=== PATIENT | female | born 1950 | race Caucasian/White ===

== ENCOUNTER → 2018-04-03 08:21 | Outpatient (CLI) | payer OTHER, SELFPAY ==
[2018-04-06 10:14] LABS: Lipoprofile NMR SEE SEPARATE REPORTS
== END ==
PROVIDERS: Visit Provider Family Medicine
DX: E78.5 Hyperlipidemia, unspecified (principal)
CPT/HCPCS: 36415; 83704

== ENCOUNTER → 2019-06-25 12:09 | Outpatient (CLI) | payer MEDICARE, SELFPAY ==
--- NOTE | 2019-06-25 | DI.MG.S_ITS ---
BILATERAL DIGITAL SCREENING MAMMOGRAM 3D/2D WITH CAD: 06/25/2019 CLINICAL: Routine screening. Comparison is made to exams dated: 07/13/2017 mammogram, 07/10/2013 mammogram, 07/07/2015 mammogram, 06/15/2011 mammogram, and 11/04/2009 mammogram - [facility]. The tissue of both breasts is heterogeneously dense. This may lower the sensitivity of mammography. Current study was also evaluated with a Computer Aided Detection (CAD) system. There is a biopsy clip in the left breast. There is a mole marker on the left breast. No significant masses, calcifications, or other findings are seen in either breast. There has been no significant interval change. IMPRESSION: NEGATIVE There is no mammographic evidence of malignancy. A 1 year screening mammogram is recommended. This exam was interpreted at Station ID: [id number]. NOTE: For mammograms, a report in lay terms will be sent to the patient. Approximately 15% of breast malignancies will not be visualized mammographically. In the management of a palpable breast mass, a negative mammogram must not discourage biopsy of a clinically suspicious lesion. Electronically Signed By: Miguel fortune/carlos a:06/25/2019 18:09:37 letter sent: Normal Exam ACR BI-RADS Category 1: Negative 3341F
== END ==
PROVIDERS: PCP Family Medicine; Visit Provider Family Medicine
DX: Z12.31 Encounter for screening mammogram for malignant neoplasm of breast (principal)
CPT/HCPCS: 77063; 77067

== ENCOUNTER → 2019-07-23 09:45 | Outpatient (CLI) | payer MEDICARE, SELFPAY | PROVIDERS: PCP Family Medicine; Referring Provider Family Medicine; Visit Provider Family Medicine | DX: M81.0 Age-related osteoporosis without current pathological fracture (principal); Z78.0 Asymptomatic menopausal state | CPT/HCPCS: 77080 ==

== ENCOUNTER → 2019-08-06 08:27 | Outpatient (CLI) | payer MEDICARE, SELFPAY ==
[2019-08-06 09:36] LABS: Add Manual Diff / Slide Review NO; Basophils Absolute Auto 100 /uL (0-100); Basophils Percent Auto 2.3 % (0-2); Eosinophils Absolute Auto 100 /uL (0-450); Eosinophils Percent Auto 2.7 % (2-4); Hematocrit 43.8 % (36-46); Hemoglobin 14.5 g/dL (12.0-16.0); Lymphocytes Absolute Auto 1800 /uL (1100-4500); Lymphocytes Percent Auto 39.1 % (25-40); Mean Corpuscular HGB Conc 33.1 % (30-36); Mean Corpuscular Hemoglobin 29.6 PG (26-34); Mean Corpuscular Volume 89.4 fL (80-100); Monocytes Absolute Auto 500 /uL (0-900); Monocytes Percent Auto 9.7 % (3-14); Neutrophils Absolute Auto 2200 /uL (1500-7000); Neutrophils Percent Auto 46.2 % (50-75); Platelet Count 280 X10^3/uL (150-400); Red Cell Distribution Width 13.2 % (11.6-14.8); White Blood Cell Count 4.7 X10^3/uL (4.5-11.0)
[2019-08-06 09:56] LABS: Alanine Aminotransferase 15 IU/L (<35); Albumin 4.3 g/dL (3.5-5.0); Albumin Globulin Ratio 1.5 (1.0-2.8); Alkaline Phosphatase 101 U/L (38-126); Aspartate Aminotransferase 26 IU/L (14-36); BUN Creatinine Ratio 31.4 (6-22); Bilirubin Total 0.5 mg/dL (0.2-1.3); Blood Urea Nitrogen 22 mg/dL (7-17); Calcium 9.6 mg/dL (8.4-10.2); Carbon Dioxide 30 mmol/L (22-32); Chloride 103 mmol/L (98-107); Cholesterol 235 mg/dL (140-199); Estimated Glomerular Filt Rate > 60.0 mL/min (>60); Globulin 2.9 g/dL (1.7-4.1); Glucose 99 mg/dL (80-110); HDL Cholesterol 67 mg/dL (40-60); HEMOLYSIS < 15 (0-50); LDL Cholesterol Calculated 153 mg/dL (<100); Potassium 4.6 mmol/L (3.4-5.1); Sodium 141 mmol/L (137-145); Total Protein 7.2 g/dL (6.3-8.2); Triglycerides 77 mg/dL (35-150)
[2019-08-06 09:59] LABS: High Sensitivity CRP - Cardiac 0.6 mg/L (1.0-3.0)
[2019-08-06 10:27] LABS: TSH w/ Reflex to FT4 2.83 uIU/mL (0.47-4.68)
[2019-08-06 10:56] LABS: Hep C Virus Ab w/Reflex Quant NEGATIVE s/c (NEGATIVE)
== END ==
PROVIDERS: PCP Family Medicine; Referring Provider Family Medicine; Visit Provider Family Medicine
DX: Z11.59 Encounter for screening for other viral diseases (principal); E78.5 Hyperlipidemia, unspecified
CPT/HCPCS: 36415; 80053; 80061; 84443; 85025; 86140; 86803

== ENCOUNTER → 2019-10-31 10:10 | Outpatient (CLI) | payer MEDICARE, SELFPAY ==
--- NOTE | 2019-10-31 10:11 | DI.CT.S_ITS ---
PROCEDURE: CT KIDNEY URETER BLADDER (KUB) INDICATIONS: hematura and kidney pain TECHNIQUE: Noncontrast 5 mm thick sections acquired from the diaphragms to the symphysis. 5 mm thick coronal and sagittal reformats were then performed. For radiation dose reduction, the following was used: automated exposure control, adjustment of mA and/or kV according to patient size. COMPARISON: None. FINDINGS: Image quality: Excellent. Lung bases: Lung bases are clear. Heart size is normal. Urinary system: Both kidneys are normal in size. There are bilateral small kidney stones within the calyces of both kidneys, none of which appear obstructed. There is, however, right-sided hydronephrosis and slight perinephric fat stranding. The left ureter appears non-dilated throughout its expected course, but the right ureter is mildly dilated to the bladder level where an impacted 3 x 5 mm calculus can be seen within the submucosal tunnel portion of the distal ureter. Bladder wall thickness is normal; no calcified bladder stones. An additional unexpected finding is a potential malignant mass mildly exophytic from the lower third cortex of the left kidney, rounded, measuring up to 2.1 cm in diameter, and having an internal radiodensity that is heterogeneous and above the upper limits of measurements of the renal cortex elsewhere. Other solid organs: Liver is normal in size. Gallbladder appears normal. Pancreas is normal in contours. Spleen is normal in size. No adrenal nodules. Peritoneum and bowel: Unenhanced bowel loops demonstrate normal wall thickness and caliber. No free fluid or air. Nodes and vessels: No retroperitoneal or mesenteric adenopathy by size criteria. Aorta and inferior vena cava are normal in caliber. Abdominal wall: No ventral hernias. Pelvis: No free pelvic fluid. No inguinal hernias or adenopathy. Bones: No suspicious bony lesions. No vertebral body compression fractures. IMPRESSION: 1. There is an unexpected finding of a potential malignant 2.1 cm mass exophytic from the lower third renal cortex of the left kidney. Contrast enhanced followup renal malignancy protocol CT is recommended. 2. Impacted far distal right ureteral stone at the bladder wall level, measuring 3 x 5 mm. A stone of this size may not pass without urologic intervention. This is associated with mild to moderate right-sided hydronephrosis and hydroureter. 3. In addition to the calculus noted above there is the finding of bilateral nonobstructive small calculi involving the kidneys bilaterally. Dictated by: Willian Patton M.D. on 10/31/2019 at 10:27 Approved by: Willian Patton M.D. on 10/31/2019 at 11:01
== END ==
PROVIDERS: PCP Family Medicine; Referring Provider Family Medicine; Visit Provider Family Medicine
DX: R31.9 Hematuria, unspecified (principal); N13.2 Hydronephrosis with renal and ureteral calculous obstruction; R16.0 Hepatomegaly, not elsewhere classified; N23 Unspecified renal colic
CPT/HCPCS: 74176

== ENCOUNTER → 2019-12-22 09:03 | Outpatient (CLI) | payer MEDICARE, SELFPAY ==
[2019-12-23 18:35] LABS: COVID19 Sendout Not Detected (Not Detect)
== END ==
PROVIDERS: PCP Family Medicine; Visit Provider Physician Assistant
DX: Z01.812 Encounter for preprocedural laboratory examination (principal)
CPT/HCPCS: 87635

== ENCOUNTER 2019-12-25 08:27 | Day surgery (SDC) | payer MEDICARE, SELFPAY ==
[2019-12-25] VITALS (11 sets, daily range): BP systolic 96–139; BP diastolic 57–89; PULSE 61–93; RESP 10–16; TEMP 36.1–37.1; O2SAT 96–100; BMI 21.4
--- NOTE | 2019-12-25 | PATH_ITS ---
[facility] Accession Number: [id number] . 01 Material submitted: . colon - COLON POLYPS AT 40 CM X3 . 02 Diagnosis: Colon Polyps at 40 cm x3: Portion of tubular adenoma x1. Portion of serrated lesion x 1, favor sessile serrated adenoma. Portion of serrated lesion x 1, favor hyperplastic polyp. MRV 12/28/2019 1200 Local . 02 Electronically signed: . Lesley Farley MD, Pathologist NPI- [id number] . 01 Gross description: . COLON POLYPS AT 40 CM X3: Received in formalin are 3 fragment(s) of gamboa, soft tissue measuring 0.2 x 0.2 x 0.1 cm to 0.3 x 0.1 x 0.1 cm submitted entirely in 1 cassette(s) /NAKITA 12/26/2019 2113 Local . 02 Pathologist provided ICD-10: K63.5, Z12.11 . 02 CPT . 749025 Performed at: 01 [facility] [address], [place], [place] [id number] MD Joaquin Santiago MD Phone: [phone] Performed at: 02 [facility] [address] [place], [place] [id number] MD Maki Cruz MD Phone: [phone]
[2019-12-25] MEDS: FLEETS ENEMA 1 EACH PR (09:19)
[2019-12-25] MEDS: LACTATED RINGERS 1,000 ML 200 ML IV (09:19)
--- NOTE | 2019-12-25 09:32 | SUR.PREOP ---
Stool was cloudy yellow, green. Talked with Dr. Matute, enema given as ordered. No results yet.
--- NOTE | 2019-12-25 09:58 | PM.HP.1 ---
History of Present Illness History of Present Illness Date Patient Seen: 12/25/19 Time Patient Seen: 09:58 Chief complaint: [id number] Narrative: Patient is a woman here for screening colonoscopy. Her last exam was 12 or so years ago. No family history of colon cancer. No personal history of polyps. Patient History Medical History Abnormal Pap smear of cervix (Chronic) Chicken pox (Resolved) Dyspareunia (Chronic) Fibroids (Chronic) Hair cast (Chronic) Hemorrhoid (Resolved) Hepatitis A (Resolved ~2003) High cholesterol (Chronic) Irregular menstrual cycle (Chronic) Measles (Resolved) Mumps (Resolved) Osteopenia (Acute) Postnasal drip (Chronic) Sensitive skin (Chronic) Surgical History Anesthesia (Resolved) Ovarian cyst (Chronic ~1990) Status post colonoscopy (~2007) Family & Social History Family History Father Age: 99 Alzheimer's dementia Arthritis Incontinence Mother Age: 102 Macular degeneration Hearing loss Incontinence Dementia Grandmother Hypertension Social History: household members significant other Tobacco & Substance use: Smoking Status Never smoker alcohol intake current alcohol intake frequency a few times a month Substance Use Type does not use Meds Home Medications and Allergies Home Medications Medication Instructions Recorded Confirmed Type CHOLECALCIFEROL (D-AL DROPS) 400 units PO QDAY #0 08/15/12 12/25/19 History COENZYME Q10/VITAMIN E (CO-Q-10 200 mg PO QDAY #0 08/15/12 12/25/19 History 200mg) Lutein (#LUTEIN) 20 mg PO QDAY #0 08/15/12 11/01/19 History estriol 0.2% VAGINAL WEEKLY 12/25/19 History melatonin 1 mg PO BEDTIME PRN 12/25/19 12/25/19 History Allergies Allergy/AdvReac Type Severity Reaction Status Date / Time ciprofloxacin [CIPROFLOXACIN] Allergy Mild Rash, Verified 12/25/19 09:09 itching Review of Systems Review of Systems ROS: Yes All systems reviewed with the patient and are negative except as otherwise documented Genitourinary Comments: Recent kidney stones and kidney cysts were found Exam Vital Signs (past 8 hours): - 12/25/19 09:00 12/25/19 09:09 Temperature 98.1 F 98.1 F Pulse Rate 90 90 Respiratory Rate 14 16 Blood Pressure 139/89 139/89 Pulse Oximetry 98 98 Oxygen Delivery Method Room Air Narrative Exam Narrative: Cooperative no apparent distress lungs are clear to auscultation without rales or rhonchi. Heart regular rate and rhythm without murmur gallop. Abdomen is scaphoid soft nontender without mass. Patient is alert and oriented. Assessment & Plan Assessment & Plan narrative: I have discussed the procedure and the rationale with the patient including risks of bleeding, perforation which would necessitate a major operation, failure to find remove all lesions and the potential to tattoo. They appeared to understand and wished to proceed.
--- NOTE | 2019-12-25 09:59 | PM.PREOP ---
Pre-operative Note COVID-19 COVID-19 status: Negative Result date/Date tested (Pos, Neg/Pending): 12/22/19 Interval Note History & Physical reviewed/Exam performed by Physician: Yes Changes to H&P: No ASA Class (for procedural sedation): I
[2019-12-25] MEDS: MIDAZOLAM 5 MG/5 ML VIAL IV (10:23)
[2019-12-25] MEDS: fentaNYL 250 MCG/5 ML INJ IV (10:23)
--- NOTE | 2019-12-25 10:45 | PM.OP.ENDO ---
Operative Date/Time/Diagnoses Date of procedure: 12/25/19 Time of procedure: 10:45 Pre-op diagnosis: Screening examination for colon cancer Post-op diagnosis: same (Three tiny polyp snare 40 cm from the anal verge. Sigmoid diverticulosis.) Procedure & Clinicians Study performed: Colonoscopy with cold biopsies Same procedure as scheduled: Yes Indications: Screening. Last exam was over 10 years ago Surgeon: Rigoberto Matute Procedure Notes SCOAP/Timeout: Performed Procedure in detail: The patient was placed in the left lateral decubitus position and underwent IV sedation directed by the surgeon consisting of fentanyl and Versed. Digital exam was unremarkable. The scope was inserted and advanced through the rectum into the sigmoid. At about 40 cm I encountered 2 very small polyps which I biopsied and removed. I noted diverticulosis as well. I continued on into the Descending, transverse, and ascending colon. These were normal in appearance.. The cecum was reached identified by the ileocecal valve and the appendiceal opening. The ileocecal valve was successfully cannulated. The terminal ileum was normal in appearance. There was a small area of the cecum near the appendix that I did not see well due to large number of seeds which I could not suction. The scope was gradually brought out. One other Polyp was found at near the location of the 1st 2. It was also tiny and removed and placed in the same container.. The scope ultimately was retroflexed in the rectum. The appearance was normal. The scope was removed and the patient tolerated the procedure well. Adequate Scope withdrawal time: 6 minutes Sedation minutes: 28 Findings: diverticulosis and polyp (Three very small lesions. May not be neoplastic.) Specimen(s): other (Three small polyps near 40 cm) Complications: none Post-procedure Recommendations: Colonscopy in 5 years (If the polyps removed are not adenomatous, then 10 years would be more appropriate.) Follow up: as needed Disposition: PACU
--- NOTE | 2019-12-25 11:41 | SUR.PHASEII ---
Patient sat on the edge of the bed, c/o feeling lightheaded and was laid back down. Fluids and crackers provided and encouraged. Call light within reach.
--- NOTE | 2019-12-25 12:09 | SUR.PHASEII ---
Attempted to get dressed, VS taken, pt then wanted to lay down again.
--- NOTE | 2019-12-25 12:38 | SUR.PHASEII ---
1220: Pt now ready to get going, VSS, left when ready and left in stable condition.
== END 2019-12-25 12:30 | disposition home or self-care (01) ==
PROVIDERS: PCP Family Medicine; Referring Provider Specialist; Visit Provider Specialist
PROC: 0DJD8ZZ Inspection of Lower Intestinal Tract, Via Natural or Artificial Opening Endoscopic (ICD-10-PCS; CPT 45378; principal; 2019-12-25 09:45)
DX: Z12.11 Encounter for screening for malignant neoplasm of colon (principal); K57.30 Diverticulosis of large intestine without perforation or abscess without bleeding; K63.5 Polyp of colon
CPT/HCPCS: 45380; 99152; 99153; J2250; J3010

== ENCOUNTER → 2020-01-01 07:32 | Outpatient (CLI) | payer MEDICARE, SELFPAY ==
[2020-01-01 09:26] LABS: Uric Acid 3.6 mg/dL (2.5-6.2)
[2020-01-01 09:55] LABS: Collection Time Urine 7 Hours; Creatinine 24 Hour Urine 806 mg/day (800-1800); Sodium 24 Hour Urine 53 mmol/day (40-220); Sodium Urine Random 17 mmol/L (30-90); Total Volume Urine 3100 mL
[2020-01-01 10:42] LABS: Calcium 24 Hour Urine 180 mg/day (100-300); Calcium Urine Random 5.8 mg/dL; Collection Time Urine 7 Hours; Phosphorous 24 Hour Urine 561 mg/day (400-1300); Phosphorous Urine Random 18.1 mg/dL
[2020-01-01 13:20] LABS: Total Volume Urine 3100 mL
[2020-01-02 12:09] LABS: Calcium 9.3 mg/dL (8.7-10.3); Parathyroid Hormone, Intact 38 pg/mL (15-65)
[2020-01-03 14:36] LABS: Urine Oxalates 5 mg/L (Undefined); Urine Oxalates 24 hour 16 mg/24 hr (4-31)
== END ==
PROVIDERS: PCP Family Medicine; Referring Provider Family Medicine; Visit Provider Family Medicine
DX: N20.2 Calculus of kidney with calculus of ureter (principal)
CPT/HCPCS: 36415; 82310; 82340; 82507; 82570; 83945; 83970; 84105; 84300; 84550; 84560

== ENCOUNTER → 2020-07-10 10:19 | Outpatient (CLI) | payer MEDICARE, SELFPAY ==
[2020-07-10] MEDS: COVID-19 VACC #1, MRNA(MOD) 100 MCG/0.5 ML VIAL IM (12:28)
== END ==
PROVIDERS: PCP Family Medicine; Visit Provider Internal Medicine
DX: Z23 Encounter for immunization (principal)
CPT/HCPCS: 0011A; 91301

== ENCOUNTER → 2020-08-07 09:15 | Outpatient (CLI) | payer MEDICARE, SELFPAY ==
[2020-08-07] MEDS: COVID-19 VACC #2, MRNA(MOD) 100 MCG/0.5 ML VIAL IM (09:21)
== END ==
PROVIDERS: PCP Family Medicine; Visit Provider Internal Medicine
DX: Z23 Encounter for immunization (principal)
CPT/HCPCS: 0012A; 91301

== ENCOUNTER → 2020-12-11 08:42 | Outpatient (CLI) | payer OTHER, SELFPAY ==
[2020-12-11 09:27] LABS: Add Manual Diff / Slide Review NO; Basophils Absolute Auto 100 /uL (0-100); Basophils Percent Auto 2.2 % (0-2); Eosinophils Absolute Auto 100 /uL (0-450); Eosinophils Percent Auto 2.9 % (2-4); Hematocrit 41.1 % (36-46); Hemoglobin 13.5 g/dL (12.0-16.0); Lymphocytes Absolute Auto 1900 /uL (1100-4500); Lymphocytes Percent Auto 37.5 % (25-40); Mean Corpuscular HGB Conc 32.9 % (30-36); Mean Corpuscular Hemoglobin 29.1 PG (26-34); Mean Corpuscular Volume 88.6 fL (80-100); Monocytes Absolute Auto 400 /uL (0-900); Monocytes Percent Auto 8.4 % (3-14); Neutrophils Absolute Auto 2500 /uL (1500-7000); Platelet Count 288 X10^3/uL (150-400); Red Blood Cell Count 4.64 X10^6/uL (4.0-5.2); Red Cell Distribution Width 13.3 % (11.6-14.8)
[2020-12-11 09:41] LABS: Alanine Aminotransferase 15 IU/L (<35); Albumin Globulin Ratio 1.4 (1.0-2.8); Alkaline Phosphatase 79 U/L (38-126); Aspartate Aminotransferase 26 IU/L (14-36); BUN Creatinine Ratio 23.4 (6-22); Bilirubin Total 0.5 mg/dL (0.2-1.3); Blood Urea Nitrogen 15 mg/dL (7-17); Calcium 8.9 mg/dL (8.4-10.2); Carbon Dioxide 27 mmol/L (22-32); Chloride 107 mmol/L (98-107); Cholesterol 237 mg/dL (140-199); Estimated Glomerular Filt Rate > 60.0 mL/min (>60); Globulin 2.8 g/dL (1.7-4.1); Glucose 98 mg/dL (80-110); HDL Cholesterol 70 mg/dL (40-60); HEMOLYSIS < 15 (0-50); LDL Cholesterol Calculated 151 mg/dL (<100); Potassium 3.9 mmol/L (3.4-5.1); Sodium 138 mmol/L (137-145); Total Protein 6.8 g/dL (6.3-8.2); Triglycerides 82 mg/dL (35-150)
== END ==
PROVIDERS: PCP Family Medicine; Referring Provider Family Medicine; Visit Provider Family Medicine
DX: E78.2 Mixed hyperlipidemia (principal)
CPT/HCPCS: 36415; 80053; 80061; 85025

== ENCOUNTER → 2020-12-17 10:10 | Outpatient (CLI) | payer OTHER, SELFPAY ==
--- NOTE | 2020-12-17 10:12 | DI.US.S_ITS ---
PROCEDURE: US RENAL COMPLETE INDICATIONS: LEFT KIDNEY MASS TECHNIQUE: Real-time scanning was performed of the kidneys and bladder, with image documentation. COMPARISON: [facility], CT, CT KIDNEY URETER BLADDER (KUB), 10/31/2019, 10:07. FINDINGS: Kidneys: Kidneys are normal in size. Right kidney measures 10.3 cm long; left kidney measures 11.4 cm long. Right renal cortical thickness is 1.5 cm; left renal cortical thickness is 1.3 cm. Renal cortical echotexture is normal. A hyperechoic solid mass is seen at the inferior pole of the left kidney measuring approximately 2.6 x 1.6 x 2.1 cm, which corresponds to the abnormality on CT from 10/31/2019. A simple appearing cyst is seen in the superior pole of the right kidney measuring up to 2.8 cm in maximum dimension. A 6 mm echogenic focus at the inferior pole of the right kidney is compatible with a nonobstructing calculus. Scattered tiny echogenic foci in both kidneys likely represent tiny nonobstructing calculi as seen on the prior CT. There is no hydronephrosis. Bladder: Pre-void bladder volume is 350 mL. Post-void residual is 0 mL. Pre-void images demonstrate no intraluminal masses or stones. On pre-void images, bilateral ureteral jets are noted with color Doppler interrogation. (Of note, ureteral jets may not be detectable in up to 25% of cases due to insufficient differences in specific gravity between ureteral and bladder urine). Miscellaneous: No free pelvic fluid. IMPRESSION: 1. Solid echogenic mass in the inferior pole of the left kidney measures 2.6 x 1.6 x 2.1 cm, mildly increased in size when compared to the CT from 10/31/2019. 2. Nonobstructing 6 mm calculus in the inferior pole of the right kidney. Additional bilateral tiny echogenic foci likely represent non-obstructing calculi as seen on the prior CT. No hydronephrosis. Dictated by: Raffaele Cha M.D. on 12/17/2020 at 13:48 Approved by: Raffaele Cha M.D. on 12/17/2020 at 13:54
== END ==
PROVIDERS: PCP Family Medicine; Referring Provider Family Medicine; Visit Provider Family Medicine
DX: N28.89 Other specified disorders of kidney and ureter (principal); N20.0 Calculus of kidney
CPT/HCPCS: 76770

== ENCOUNTER → 2021-03-31 09:17 | Outpatient (CLI) | payer OTHER, SELFPAY ==
--- NOTE | 2021-03-31 | DI.MG.S_ITS ---
BILATERAL DIGITAL SCREENING MAMMOGRAM 3D/2D WITH CAD: 03/31/2021 CLINICAL: Routine screening. Family history of breast cancer. Comparison is made to exams dated: 06/25/2019 mammogram, 07/13/2017 mammogram, and 07/07/2015 mammogram - [facility]. The tissue of both breasts is heterogeneously dense. This may lower the sensitivity of mammography. Current study was also evaluated with a Computer Aided Detection (CAD) system. There is a biopsy clip in the left breast. There is a mole marker on the left breast. No significant masses, calcifications, or other findings are seen in either breast. There has been no significant interval change. IMPRESSION: NEGATIVE There is no mammographic evidence of malignancy. A 1 year screening mammogram is recommended. This exam was interpreted at Station ID: [id number]. NOTE: For mammograms, a report in lay terms will be sent to the patient. Approximately 15% of breast malignancies will not be visualized mammographically. In the management of a palpable breast mass, a negative mammogram must not discourage biopsy of a clinically suspicious lesion. Electronically Signed By: Jaswinder Cool M.D., jr/carlos a:03/31/2021 10:36:42 letter sent: Normal Exam ACR BI-RADS Category 1: Negative 3341F
== END ==
PROVIDERS: PCP Family Medicine; Referring Provider Family Medicine; Visit Provider Family Medicine
DX: Z12.31 Encounter for screening mammogram for malignant neoplasm of breast (principal); Z80.3 Family history of malignant neoplasm of breast
CPT/HCPCS: 77063; 77067

== ENCOUNTER → 2021-12-10 07:52 | Outpatient (CLI) | payer OTHER, SELFPAY ==
[2021-12-10 09:20] LABS: Add Manual Diff / Slide Review NO; Basophils Absolute Auto 100 /uL (0-100); Basophils Percent Auto 1.8 % (0-2); Eosinophils Absolute Auto 100 /uL (0-450); Eosinophils Percent Auto 2.6 % (2-4); Hematocrit 41.2 % (36-46); Lymphocytes Absolute Auto 1700 /uL (1100-4500); Lymphocytes Percent Auto 35.3 % (25-40); Mean Corpuscular Hemoglobin 29.7 PG (26-34); Mean Corpuscular Volume 87.3 fL (80-100); Monocytes Absolute Auto 300 /uL (0-900); Monocytes Percent Auto 7.3 % (3-14); Neutrophils Absolute Auto 2500 /uL (1500-7000); Platelet Count 282 X10^3/uL (150-400); Red Blood Cell Count 4.71 X10^6/uL (4.0-5.2); Red Cell Distribution Width 13.6 % (11.6-14.8); White Blood Cell Count 4.7 X10^3/uL (4.5-11.0)
[2021-12-10 09:43] LABS: Alanine Aminotransferase 13 IU/L (<35); Albumin Globulin Ratio 1.5 (1.0-2.8); Alkaline Phosphatase 84 U/L (38-126); Aspartate Aminotransferase 23 IU/L (14-36); BUN Creatinine Ratio 18.1 (6-22); Bilirubin Total 0.5 mg/dL (0.2-1.3); Blood Urea Nitrogen 13 mg/dL (7-17); Carbon Dioxide 28 mmol/L (22-32); Chloride 107 mmol/L (98-107); Estimated Glomerular Filt Rate > 60 mL/min (>60); Globulin 2.6 g/dL (1.7-4.1); Glucose 98 mg/dL (80-110); HEMOLYSIS < 15 (0-50); Potassium 4.1 mmol/L (3.4-5.1); Sodium 142 mmol/L (137-145); Total Protein 6.6 g/dL (6.3-8.2)
[2021-12-10 09:56] LABS: TSH w/ Reflex to FT4 3.01 uIU/mL (0.47-4.68)
[2021-12-12 13:32] LABS: Cholesterol, Total 264 mg/dL (100-199); HDL-Cholesterol 80 mg/dL (>39); HDL-Particle (Total) 33.8 umol/L (>=30.5); LDL Particle 1593 nmol/L (<1000); LDL Size 21.6 nm (>20.5); LDL-Cholsterol 170 mg/dL (0-99); LP-IR Score <25 (<=45); Small LDL- Particle 251 nmol/L (<=527); Triglycerides 82 mg/dL (0-149)
== END ==
PROVIDERS: PCP Family Medicine; Referring Provider Family Medicine; Visit Provider Family Medicine
DX: E78.2 Mixed hyperlipidemia (principal)
CPT/HCPCS: 36415; 80053; 80061; 83704; 84443; 85025

== ENCOUNTER → 2022-05-26 09:46 | Outpatient (CLI) | payer OTHER, SELFPAY ==
--- NOTE | 2022-05-26 | DI.CT.S_ITS ---
PROCEDURE: CT SINUS SCREEN WO CON INDICATIONS: Chronic pansinusitis TECHNIQUE: Noncontrast 3.0 mm axial images acquired from the frontal sinuses to the mid-sella, with coronal and sagittal reformats. For radiation dose reduction, the following was used: automated exposure control, adjustment of mA and/or kV according to patient size. COMPARISON: None. FINDINGS: Image quality: Excellent. Maxillary Sinuses: Mild bilateral maxillary mucosal thickening measures up to 2 mm. Right ostiomeatal unit does appear obstructed. Left ostiomeatal unit is clear Ethmoid Air Cells: No bony remodeling or destruction. Sinuses are clear. Sphenoid Sinuses: Minimal mucosal thickening measures up to 3 mm Frontal Sinuses: No bony remodeling or destruction. Sinuses are clear. Ostiomeatal Complexes: Ostiomeatal complexes are patent. No Randolph cells. Miscellaneous: Visualized intra-orbital contents are normal. No sarkis bullosa or paradoxical turbinate curvature. No nasal septal deviation. IMPRESSION: Mild maxillary sinus mucosal thickening results in right ostiomeatal unit obstruction. No air-fluid levels Approved by: Vadim Herron M.D. on 05/26/2022 at 11:59
== END ==
PROVIDERS: PCP Family Medicine; Referring Provider Otolaryngology; Visit Provider Otolaryngology
DX: J32.4 Chronic pansinusitis (principal); R09.82 Postnasal drip; R05.3 Chronic cough
CPT/HCPCS: 70486

== ENCOUNTER → 2022-10-20 09:35 | Outpatient (CLI) | payer OTHER, SELFPAY ==
[2022-10-20 11:47] LABS: BUN Creatinine Ratio 23.2 (6-22); Blood Urea Nitrogen 16 mg/dL (7-17); Calcium 9.6 mg/dL (8.4-10.2); Carbon Dioxide 30 mmol/L (22-32); Chloride 103 mmol/L (98-107); Estimated Glomerular Filt Rate > 60 mL/min (>60); Glucose 90 mg/dL (80-110); HEMOLYSIS < 15 (0-50); Potassium 4.3 mmol/L (3.4-5.1); Sodium 139 mmol/L (137-145)
== END ==
PROVIDERS: PCP Family Medicine; Referring Provider Family Medicine; Visit Provider Family Medicine
DX: N28.89 Other specified disorders of kidney and ureter (principal)
CPT/HCPCS: 36415; 80048

== ENCOUNTER → 2022-10-21 11:17 | Outpatient (CLI) | payer OTHER, SELFPAY ==
--- NOTE | 2022-10-21 11:18 | DI.CT.S_ITS ---
PROCEDURE: CT ABDOMEN RENAL PROTOCOL INDICATIONS: left renal mass re-check TECHNIQUE: Optional 5 mm thick noncontrast images acquired from the diaphragm to the iliac crests. After the administration of intravenous contrast, 5 mm thick images again acquired from the diaphragm to the iliac crests in the arterial and urographic phases. 5 mm thick coronal and sagittal reformats were then acquired. For radiation dose reduction, the following was used: automated exposure control, adjustment of mA and/or kV according to patient size. COMPARISON: [facility], , US RENAL COMPLETE, 12/17/2020, 10:43. Outside Facility, , CT ABDOMEN W/WO CONTRAST, 11/22/2019, 14:28. FINDINGS: Image quality: Excellent. Lung bases: Lung bases are clear. Heart size is normal. Genitourinary: Precontrast images demonstrate several punctate, nonobstructing intrarenal calcifications. The kidneys enhance symmetrically. A 2.5 cm corticomedullary lesion arises from the upper pole right kidney Hounsfield units are less than 10 and there is been no change compared to the prior study. Exophytic right upper pole fat density lesion measures 1.5 cm, not significantly changed. A cortical based round, fat containing mass measuring 2.3 cm in the left lower pole. Precontrast Hounsfield units are negative five. Postcontrast, it enhances to 90 on the arterial phase with washout to 57 on the delayed phase. Small cortical cyst in the superior medial left upper pole. No perinephric inflammation or hydronephrosis. No visible ureteral calcifications or hydroureter. Other solid organs: Liver is normal in size and enhancement. Subcentimeter round hyperattenuating lesion in segment two, likely a flash fill hemangioma. No other liver masses. Gallbladder is normal . Biliary system is non dilated. Pancreas enhances normally. Spleen is normal in size and enhancement. No adrenal nodules. Peritoneum and bowel: Unenhanced bowel loops are normal in wall thickness and caliber. No free fluid or air. Nodes and vessels: No retroperitoneal or mesenteric adenopathy by size criteria. Aorta and inferior vena cava are normal in caliber. Bones: No suspicious bony lesions. No vertebral body compression fractures. Miscellaneous: No ventral hernias. IMPRESSION: 1. Mild increase in size of left lower pole fat containing, enhancing renal mass, previously measuring 1.9 cm 11/22/19, now 2.3 cm. Continued surveillance is recommended. 2. No significant change to predominantly fat containing exophytic lesion arising from the right upper pole. 3. Several bilateral punctate, nonobstructing intrarenal calculi. Dictated by: Keke Doan M.D. on 10/21/2022 at 14:11 Approved by: Keke Doan M.D. on 10/21/2022 at 14:30
== END ==
PROVIDERS: PCP Family Medicine; Referring Provider Family Medicine; Visit Provider Family Medicine
DX: D17.71 Benign lipomatous neoplasm of kidney (principal); N28.89 Other specified disorders of kidney and ureter; N20.0 Calculus of kidney
CPT/HCPCS: 74170; Q9967

== ENCOUNTER → 2023-03-10 08:30 | Outpatient (CLI) | payer OTHER, SELFPAY ==
--- NOTE | 2023-03-10 | DI.MG.S_ITS ---
BILATERAL DIGITAL SCREENING MAMMOGRAM 3D/2D WITH CAD: 03/10/2023 CLINICAL: Routine screening. Family history of breast cancer. Comparison is made to exams dated: 03/31/2021 mammogram, 06/25/2019 mammogram, 07/13/2017 mammogram, and 07/07/2015 mammogram - [facility]. Both breasts are heterogeneously dense, which may obscure small masses (category c / 51-75% glandular tissue). Current study was also evaluated with a Computer Aided Detection (CAD) system. There is a biopsy clip in the left breast. No significant masses, calcifications, or other findings are seen in either breast. There has been no significant interval change. IMPRESSION: NEGATIVE There is no mammographic evidence of malignancy. A 1 year screening mammogram is recommended. Based on the Tyrer Cuzick model (a risk assessment model) the patient's lifetime risk is 7.6% and her 10 year risk is 4.8%. According to the ACR, ACS, and NCCN guidelines, an annual breast MRI exam along with mammogram is recommended if the patient's lifetime risk is 20% or greater. This exam was interpreted at Station ID: [id number]. NOTE: For mammograms, a report in lay terms will be sent to the patient. Approximately 15% of breast malignancies will not be visualized mammographically. In the management of a palpable breast mass, a negative mammogram must not discourage biopsy of a clinically suspicious lesion. Electronically Signed By: David ferrell/carlos a:03/10/2023 11:28:17 letter sent: Normal Exam ACR BI-RADS Category 1: Negative 3341F
== END ==
PROVIDERS: PCP Family Medicine; Referring Provider Family Medicine; Visit Provider Family Medicine
DX: Z12.31 Encounter for screening mammogram for malignant neoplasm of breast (principal); Z80.3 Family history of malignant neoplasm of breast
CPT/HCPCS: 77063; 77067

== ENCOUNTER → 2023-07-27 09:47 | Outpatient (CLI) | payer OTHER, SELFPAY ==
--- NOTE | 2023-07-27 09:49 | DI.RAD.S_ITS ---
Bone Density Report Name: SENIA MORRELL Age: 72 Sex: Female Ethnicity: White Date of : 1950 Indication: osteopenia; Referring Provider: ELVIS BELTRAN Study: Bone densitometry was performed. Exam Date: July 27, 2023 Accession number: [id number] Bone Density: Region BMD T-score Z-score Classification AP Spine(L1-L4) 0.757 -2.6 -0.5 Osteoporosis Femoral Neck (Left) 0.540 -2.8 -1.0 Osteoporosis Total Hip (Left) 0.697 -2.0 -0.5 Osteopenia Femoral Neck (Right) 0.582 -2.4 -0.6 Osteopenia Total Hip (Right) 0.700 -2.0 -0.4 Osteopenia Total Hip Mean 0.699 -2.0 -0.5 Osteopenia World Health Organization criteria for BMD impression classify patients as: Normal (T-score at or above -1.0), Osteopenia (T-score between -1.0 and -2.5), or Osteoporosis (T-score at or below -2.5). 10-year Fracture Risk: FRAX not reported because: Some T-score for Spine Total or Hip Total or Femoral Neck at or below -2.5 Previous Exams: -- Region Exam Age BMD T-score BMD Change BMD Change Date g/cm2 vs Baseline vs Previous -- AP Spine (L1-L4) 07/27/2023 72 0.757 -2.6 -0.058 (-7.1%)# -0.058 (-7.1%)# 07/23/2019 68 0.815 -2.1 Total Hip(Left) 07/27/2023 72 0.697 -2.0 0.037 (5.6%)# 0.037 (5.6%)# 07/23/2019 68 0.660 -2.3 Total Hip(Right) 07/27/2023 72 0.700 -2.0 -0.036 (-4.9%)# -0.036 (-4.9%)# 07/23/2019 68 0.736 -1.7 -- *Denotes significance at 95% confidence level, LSC for AP Spine = 0.022 g/cm2, LSC for Total Hip = 0.027 g/cm2 # Denotes dissimilar scan types or analysis methods Impression: The patient has osteoporosis, based on the Left Femoral Neck T-score. No significant bone loss was observed. Discussion: INCREASED RISK OF FRACTURE. BONE DENSITY IS UNDESIRABLY LOW AT ONE OR MORE SKELETAL SITES, CONSISTENT WITH POSTMENOPAUSAL OSTEOPOROSIS. This patient's lowest T-score meets the World Health Organization's (WHO) criteria for osteoporosis at one or more sites (T-score -2.5 or below). In untreated patients, the risk of osteoporotic fracture increases approximately two-fold for each 1.0 SD decrease in T-score. Low bone density is not the only risk factor for fracture; also consider factors such as patient's age, frailty or poor health, risk of falling, risk of injury, previous osteoporotic fracture, family history of osteoporosis, cigarette smoking, low body weight, etc. Not everyone with low bone mineral density has osteoporosis; osteomalacia and other metabolic bone disorders should also be considered. Patients who have osteoporosis should be evaluated for specific diseases and conditions (secondary causes) that may cause or contribute to bone loss. The [place] [employer] Endocrinologists (AACE) and National Osteoporosis Foundation (NOF) recommend pharmacologic intervention for all postmenopausal women whose T-score is in this range. The patient should follow a healthful lifestyle (good nutrition with adequate calcium and vitamin D, and appropriate weight-bearing exercise). Follow-Up: Consider a repeat BMD and Vertebral Fracture Assessment (VFA) exam in 2 years or sooner if medically necessary, to reassess this patient's status. Reported by: SILVINA LUCIANO MD on 07/27/2023 10:17:00 AM.
--- NOTE | 2023-07-27 10:05 | DI.DEXA.S_ITS ---
Bone Density Report Name: ESNIA MORRELL Age: 72 Sex: Female Ethnicity: White Date of : 1950 Indication: osteopenia; Referring Provider: ELVIS BELTRAN Study: Bone densitometry was performed. Exam Date: July 27, 2023 Accession number: [id number] Bone Density: Region BMD T-score Z-score Classification AP Spine(L1-L4) 0.757 -2.6 -0.5 Osteoporosis Femoral Neck (Left) 0.540 -2.8 -1.0 Osteoporosis Total Hip (Left) 0.697 -2.0 -0.5 Osteopenia Femoral Neck (Right) 0.582 -2.4 -0.6 Osteopenia Total Hip (Right) 0.700 -2.0 -0.4 Osteopenia Total Hip Mean 0.699 -2.0 -0.5 Osteopenia World Health Organization criteria for BMD impression classify patients as: Normal (T-score at or above -1.0), Osteopenia (T-score between -1.0 and -2.5), or Osteoporosis (T-score at or below -2.5). 10-year Fracture Risk: FRAX not reported because: Some T-score for Spine Total or Hip Total or Femoral Neck at or below -2.5 Previous Exams: -- Region Exam Age BMD T-score BMD Change BMD Change Date g/cm2 vs Baseline vs Previous -- AP Spine (L1-L4) 07/27/2023 72 0.757 -2.6 -0.058 (-7.1%)# -0.058 (-7.1%)# 07/23/2019 68 0.815 -2.1 Total Hip(Left) 07/27/2023 72 0.697 -2.0 0.037 (5.6%)# 0.037 (5.6%)# 07/23/2019 68 0.660 -2.3 Total Hip(Right) 07/27/2023 72 0.700 -2.0 -0.036 (-4.9%)# -0.036 (-4.9%)# 07/23/2019 68 0.736 -1.7 -- *Denotes significance at 95% confidence level, LSC for AP Spine = 0.022 g/cm2, LSC for Total Hip = 0.027 g/cm2 # Denotes dissimilar scan types or analysis methods Impression: The patient has osteoporosis, based on the Left Femoral Neck T-score. No significant bone loss was observed. Discussion: INCREASED RISK OF FRACTURE. BONE DENSITY IS UNDESIRABLY LOW AT ONE OR MORE SKELETAL SITES, CONSISTENT WITH POSTMENOPAUSAL OSTEOPOROSIS. This patient's lowest T-score meets the World Health Organization's (WHO) criteria for osteoporosis at one or more sites (T-score -2.5 or below). In untreated patients, the risk of osteoporotic fracture increases approximately two-fold for each 1.0 SD decrease in T-score. Low bone density is not the only risk factor for fracture; also consider factors such as patient's age, frailty or poor health, risk of falling, risk of injury, previous osteoporotic fracture, family history of osteoporosis, cigarette smoking, low body weight, etc. Not everyone with low bone mineral density has osteoporosis; osteomalacia and other metabolic bone disorders should also be considered. Patients who have osteoporosis should be evaluated for specific diseases and conditions (secondary causes) that may cause or contribute to bone loss. The [place] [employer] Endocrinologists (AACE) and National Osteoporosis Foundation (NOF) recommend pharmacologic intervention for all postmenopausal women whose T-score is in this range. The patient should follow a healthful lifestyle (good nutrition with adequate calcium and vitamin D, and appropriate weight-bearing exercise). Follow-Up: Consider a repeat BMD and Vertebral Fracture Assessment (VFA) exam in 2 years or sooner if medically necessary, to reassess this patient's status. Reported by: LASHONDA HERNANDEZ M.D. on 07/27/2023 8:34:00 AM.
== END ==
PROVIDERS: PCP Family Medicine; Referring Provider Family Medicine; Visit Provider Family Medicine
DX: N95.9 Unspecified menopausal and perimenopausal disorder (principal); M81.0 Age-related osteoporosis without current pathological fracture
CPT/HCPCS: 77080

== ENCOUNTER → 2023-08-15 12:49 | Outpatient (CLI) | payer SELFPAY | LOC: RAD 12:52 | PROVIDERS: PCP Family Medicine; Referring Provider Family Medicine; Visit Provider Family Medicine | DX: N95.9 Unspecified menopausal and perimenopausal disorder (principal) ==

== ENCOUNTER → 2023-10-03 07:16 | Outpatient (CLI) | payer OTHER, SELFPAY ==
[2023-10-03 08:26] LABS: Alanine Aminotransferase 16 IU/L (<35); Albumin 4.4 g/dL (3.5-5.0); Albumin Globulin Ratio 1.7 (1.0-2.8); Alkaline Phosphatase 93 U/L (38-126); Aspartate Aminotransferase 24 IU/L (14-36); Bilirubin Total 0.6 mg/dL (0.2-1.3); Blood Urea Nitrogen 16 mg/dL (7-17); Calcium 9.5 mg/dL (8.4-10.2); Carbon Dioxide 30 mmol/L (22-32); Chloride 106 mmol/L (98-107); Cholesterol 279 mg/dL (140-199); Estimated Glomerular Filt Rate > 60 mL/min (>60); Globulin 2.6 g/dL (1.7-4.1); Glucose 92 mg/dL (80-110); HDL Cholesterol 87 mg/dL (40-60); HEMOLYSIS < 15 (0-50); LDL Cholesterol Calculated 172 mg/dL (<100); Potassium 4.1 mmol/L (3.4-5.1); Sodium 140 mmol/L (137-145); Triglycerides 101 mg/dL (35-150)
[2023-10-03 08:53] LABS: TSH w/ Reflex to FT4 2.63 uIU/mL (0.47-4.68)
== END ==
PROVIDERS: PCP Family Medicine; Referring Provider Family Medicine; Visit Provider Family Medicine
DX: E78.2 Mixed hyperlipidemia (principal)
CPT/HCPCS: 36415; 80053; 80061; 84443

== ENCOUNTER → 2025-03-11 12:58 | Outpatient (CLI) | payer MEDICARE, SELFPAY ==
--- NOTE | 2025-03-11 12:59 | DI.CT.S_ITS ---
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 After the administration of intravenous contrast, 5 mm thick images again acquired from the diaphragm to the iliac crests in the arterial and urographic phases. 5 mm thick coronal and sagittal reformats were then acquired. For radiation dose reduction, the following was used: automated exposure control, adjustment of mA and/or kV according to patient size. COMPARISON: Outside Facility, , CT ABDOMEN W/WO CONTRAST, 11/22/2019, 14:28. [facility], CT, CT ABDOMEN RENAL PROTOCOL, 10/21/2022, 11:25. FINDINGS: Image quality: Diagnostic. Kidneys and Ureters: No hydronephrosis. Multiple nonobstructive stones in the bilateral kidneys, which measure up to 5 mm in the left lower pole with Hounsfield units of 415 (2/55). Interval increase in size of a right upper pole 3 cm simple cyst (Bosniak 1). Stable size and appearance of an exophytic fat containing 1.2 cm lesion in the right anterior upper pole (3/48). On precontrast series this measures -26 Hounsfield units, on arterial phase it measures 0 Hounsfield units, and on postcontrast it measures 10 Hounsfield units (series 2, image 52; series 3, image 48; series 5, image 50). Slight interval increase in size and appearance of a 2.5 cm fat containing lesion in the left lower pole (3/59), previously 2.3 cm. On noncontrast series, it measures - 4 (2/60), on arterial phase it measures 69 Hounsfield units (3/61), and on delayed phase it measures 59 Hounsfield units (5/57). Increased conspicuity of a 1.8 cm left posterior upper pole cystic lesion which measures 27 Hounsfield units on arterial phase, and 79 Hounsfield units on nephrographic phase (5/39). This previously measured 1.7 cm on 11/22/2019. OTHER: Lower chest: Unremarkable. Liver: No solid mass. The prior hyperattenuating focus in segment 2 is not redemonstrated on this exam, possibly secondary to contrast bolus timing. Gallbladder: Similar mural thickening of the fundus of the gallbladder which is decompressed. No cholelithiasis. Biliary ducts: No biliary dilation. Pancreas: No ductal dilation. Spleen: Size is within normal limits. Adrenal Glands: A 1.7 cm nodule in the right adrenal gland measures -9 Hounsfield units on precontrast series (), consistent with a lipid rich adenoma. No left adrenal nodule. Stomach and Bowel: Normal colonic caliber, without significant wall thickening. Peritoneum: No abnormal intraperitoneal fluid. No free air. Ventral Wall: No hernia. Abdominal Nodes: No retroperitoneal or mesenteric adenopathy by size criteria. Vessels: Aorta and inferior vena cava are normal in size. Bones: No aggressive osseous abnormality. IMPRESSION: Increased enhancement of a Bosniak III lesion in the left posterior upper pole compared to 2022 and 2019. Deferred to urological management. Slight interval increase in size of a 2.5 cm fat containing enhancing resultant mass, previously 1.9 cm in 2019 and 2.3 cm in 2022. Recommend continued surveillance. Stable appearance of a right upper pole 1.2 cm fat containing lesion. Increased conspicuity of a left posterior upper pole 1.8 cm enhancing complex cystic lesion. Bilateral non-obstructing nephrolithiasis. Dictated by: Johnny Lindsey M.D. on 03/12/2025 at 8:08 Approved by: Johnny Lindsey M.D. on 03/12/2025 at 8:45
[2025-03-11 13:19] LABS: Estimated Glomerular Filt Rate > 60 mL/min (>60)
== END ==
PROVIDERS: PCP Family Medicine; Referring Provider Urology; Visit Provider Urology
DX: D17.71 Benign lipomatous neoplasm of kidney (principal); N20.0 Calculus of kidney
CPT/HCPCS: 36415; 74170; 82565; Q9967

== ENCOUNTER 2025-03-29 12:35 | Day surgery (SDC) | payer MEDICARE, SELFPAY ==
--- NOTE | 2025-03-29 | PATH_ITS ---
[facility] Accession Number: [id number] No. of containers..02 Tissue . 01 Material submitted: . PART A: colon - CECAL POLYP PART B: colon - COLON, ASCENDING POLYP . 01 Diagnosis: A. CECAL POLYP: Sessile serrated adenoma. . B. ASCENDING COLON POLYP: Sessile serrated adenoma. MRV 04/12/2025 1337 Local . 01 Electronically signed: . Eben Leary MD, PhD, Pathologist NPI- [id number] . 01 Gross description: . A. Received in formalin with two identifiers and cecal polyp is a soft gamboa tissue fragment measuring 1.6 cm in greatest dimension, entirely submitted in A1. B. Received in formalin with two identifiers and ascending polyps are three soft gamboa tissue fragments, ranging from 0.2 to 0.4 cm in greatest dimension, entirely submitted in B1. (AER:[id number]) /ZHOU 04/08/20252037 Local . 01 Pathologist provided ICD-10: D12.0, D12.2 . 01 CPT . 666649, 092809 Specimen Comment: A courtesy copy of this report has been sent to [phone] Performed at: [address] [facility] [address], [place], [place] [id number] MD Joaquin Santiago MD Phone: [phone]
[2025-03-29 12:59] VITALS: BP 155/86; PULSE 88; RESP 16; TEMP 36.2; O2SAT 98
[2025-03-29] MEDS: LACTATED RINGERS 1,000 ML 42 ML IV (13:12)
--- NOTE | 2025-03-29 14:16 | PM.HP.IH.1 ---
History of Present Illness History of Present Illness Date Patient Seen: 03/29/25 Time Patient Seen: 14:16 Chief complaint: Colonoscopy Narrative: Katlyn is a 74-year-old woman who has a history of polyps. I saw her in 2023 and she would was also dealing with a prolapsed hemorrhoid but that has subsided and now she just has skin there. See the office note for details. [facility] Medical History Angiomyolipoma of kidney Left kidney mass Kidney stone on right side Osteopenia Sensitive skin Hair cast Mumps Measles Hepatitis A (~2003) Chicken pox Postnasal drip Irregular menstrual cycle Fibroids Dyspareunia Abnormal Pap smear of cervix Hemorrhoid High cholesterol Surgical History Anesthesia Ovarian cyst (~1990) Status post colonoscopy (~2007) Family History Father Alzheimer's dementia Arthritis Incontinence Mother Macular degeneration Hearing loss Incontinence Dementia Grandmother Hypertension Social History marital status: unmarried,living together household members: significant other Smoking Status: Never smoker alcohol intake: current substance use type: does not use Meds Home Medications and Allergies Home Medications ?Medication ?Instructions ?Recorded ?Confirmed ?Type melatonin 1 mg tablet 1 mg PO BEDTIME PRN Sleep 12/25/19 03/05/25 History estriol vaginal cream 0.2% See Rx Instructions vaginal WEEKLY 03/01/24 03/05/25 Rx #30 grams Allergies Allergy/AdvReac Type Severity Reaction Status Date / Time ciprofloxacin (CIPROFLOXACIN) Allergy Mild Rash, Verified 03/29/25 12:54 itching Exam Vital Signs (past 8 hours): - 03/29/25 12:59 Temperature 97.1 F L Pulse Rate 88 Respiratory Rate 16 Blood Pressure 155/86 H Pulse Oximetry 98 Oxygen Delivery Method Room Air Oxygen Delivery Method Room Air Const General: healthy appearing Assessment & Plan Assessment and plan (1) History of colon polyps: Status: Acute Plan Colonoscopy for history of polyps Time-Based Coding :: [TOTAL MINUTES] spent with patient and on the chart (including review of chart, obtaining history, exam, reviewing outside data, placing orders, documenting exam and treatment plan, and counseling patient) on [DATE]. [employer] Document charge(s): No
--- NOTE | 2025-03-29 14:53 | PM.OP.COLON ---
Operative Date/Time/Diagnoses Date of procedure: 03/29/25 Time of procedure: 14:53 Pre-op diagnosis: History of polyps Post-op diagnosis: same Procedure & Clinicians Study performed: Colonoscopy Same procedure(s) as scheduled: Yes Indications: History of polyps Surgeon: Eliot Hauser Anesthesia Type: MAC +/- Procedure Notes Procedure in detail: Surgeon: Eliot Hauser MD Anesthesia: Maryam Jocelin [employer] Procedure: The patient was brought to the endoscopy suite, placed in left lateral decubitus position. The patient was connected to monitoring devices. A time-out was performed. Sedation was administered. Once the patient was adequately sedated, a digital rectal exam was performed and was normal. The scope was then inserted and advanced to the cecum where the appendiceal orifice was identified and photographed. The scope was then slowly withdrawn over greater than 6 minutes. The mucosa was thoroughly inspected. There was a 5 mm polyp in the cecum removed with cold snare. There was a 7 mm polyp in the ascending colon removed with a cold snare. The scope was retroflexed in the rectum. No other abnormalities were seen. The scope was straightened and removed. The patient was awakened and brought to recovery. Scope withdrawal time: 11 minutes Sedation time: 18 minutes EBL: 2 mL Findings: 5 mm polyp in the cecum and 7 mm polyp in the ascending colon Post-procedure Disposition: PACU
[2025-03-29 14:55] VITALS: BP 100/54; PULSE 73; RESP 12; TEMP 36.1; O2SAT 99
[2025-03-29 14:59] VITALS: BP 96/53; PULSE 70; RESP 10; O2SAT 100
[2025-03-29 15:03] VITALS: BP 108/59; PULSE 63; RESP 18; TEMP 36.1; O2SAT 99
== END 2025-03-29 15:17 | disposition home or self-care (01) ==
PROVIDERS: PCP Family Medicine; Referring Provider Surgery; Visit Provider Surgery
PROC: 0DJD8ZZ Inspection of Lower Intestinal Tract, Via Natural or Artificial Opening Endoscopic (ICD-10-PCS; CPT 45378; principal; 2025-03-29 14:30)
DX: Z12.11 Encounter for screening for malignant neoplasm of colon (principal); Z86.0100 Personal history of colon polyps, unspecified; D12.0 Benign neoplasm of cecum; D12.2 Benign neoplasm of ascending colon
CPT/HCPCS: 45385; J2704; J7120